=== PATIENT | male | born 1950 | race Caucasian/White ===

== ENCOUNTER 2023-04-16 08:26 | Outpatient (CLI) | payer MEDICARE, OTHER, SELFPAY ==
--- NOTE | ~2023-04-16 | XR_ITS ---
EXAMINATION: XR cystogram DATE: 04/16/2023 09:03 INDICATION: Malignant neoplasm of trigone of urinary bladder. TECHNIQUE: Water-soluble contrast was gravity-infused through the patient's Samaniego catheter. Multiple fluoroscopic images were obtained. Fluoroscopy exposure time was 0.6 minutes. The total number of andrei ges was 12. COMPARISON: None. FINDINGS: There is a Samaniego catheter in expected position. There is a left internal ureteral stent in expected position. There is outpouching of the bladder in the area of the distal left ureter, consist ent with surgical change. There is no extraluminal leakage of contrast. There is reflux of contrast t o the left kidney. IMPRESSION: 1. No extraluminal leakage of contrast. Reviewed, dictated and finalized at location A.
== END 2023-04-16 08:27 | disposition home or self-care (01) ==
PROVIDERS: PCP Internal Medicine; Visit Provider Nurse Practitioner Adult Health
DX: C67.0 Malignant neoplasm of trigone of bladder (principal)
CPT/HCPCS: 51600; 74430; Q9967